=== PATIENT | female | born 1995 | race Caucasian/White ===

== ENCOUNTER 2018-01-09 05:26 | Day surgery (SDC) | payer OTHER ==
[2018-01-09] MEDS ORDERED: SOD CHLORIDE 0.9% 1,000 ML IV (06:00)
[2018-01-09] MEDS ORDERED: CEFAZOLIN 2 GM/50 ML (PMX) 50 ML IVPB (06:00)
[2018-01-09] MEDS: BUPIVACAINE 0.25% (MPF) 30 ML INJ (07:26)
[2018-01-09] MEDS ORDERED: HYDROmorphONE 1 MG/5 ML IV SYRINGE IV ×2 (07:30)
[2018-01-09] MEDS ORDERED: FENTAnyl 50 MCG/ML VIAL IV ×2 (07:30)
[2018-01-09] MEDS ORDERED: ONDANSETRON 4 MG INJ IV (07:30)
[2018-01-09] MEDS ORDERED: ALBUTEROL 0.083% (NEB) 2.5 MG/3 ML AMP HHN (07:30)
[2018-01-09] MEDS ORDERED: DIPHENHYDRAMINE 50 MG INJ IV (07:30)
[2018-01-09] MEDS ORDERED: FENTAnyl 50 MCG/ML VIAL ×2 (07:57→08:45)
[2018-01-09] MEDS ORDERED: ROPIVACAINE 0.5 % 30 ML VIAL (08:13)
[2018-01-09] MEDS ORDERED: SUCCINYLCHOLINE CHLORIDE 100 MG/5 ML SYG IV (08:36)
[2018-01-09] MEDS ORDERED: PROPOFOL 20 ML (08:36)
[2018-01-09] MEDS ORDERED: CEFAZOLIN 1 GM INJ (08:36)
[2018-01-09] MEDS ORDERED: LIDOCAINE 100 MG SYRINGE (08:36)
[2018-01-09] MEDS ORDERED: SUGAMMADEX SODIUM 200 MG/2 ML VIAL IV (08:36)
[2018-01-09] MEDS ORDERED: ROCURONIUM 50 MG INJ (08:36)
[2018-01-09] MEDS: HYDROmorphONE 1 MG/5 ML IV SYRINGE IV (09:06)
[2018-01-09] MEDS: FENTAnyl 50 MCG/ML VIAL IV (09:12)
[2018-01-09] MEDS: MEPERIDINE 25 MG INJ IV (09:41)
[2018-01-09] MEDS: METOCLOPRAMIDE 10 MG INJ IV (09:49)
[2018-01-09] MEDS: HYDROCODONE/APAP (5/325) TAB PO (10:54)
== END 2018-01-09 11:00 | disposition home or self-care (01) ==
LOC: SDS 05:26
DX: K80.10 Calculus of gallbladder with chronic cholecystitis without obstruction (principal)
CPT/HCPCS: 47562; 88307

== ENCOUNTER 2018-01-09 20:28 | Emergency (ER) | payer SELFPAY, OTHER | END 2018-01-09 20:45 | disposition left against medical advice (07) | LOC: E/R 20:28 | DX: Z53.21 Procedure and treatment not carried out due to patient leaving prior to being seen by health care provider (principal) ==